=== PATIENT | male | born 1970 | race Caucasian/White ===

== ENCOUNTER → 2017-04-02 | Outpatient (CLI) | payer OTHER ==
--- NOTE | 2017-04-03 00:03 | MR ---
EXAMINATION TYPE: MR brain wo/w con DATE OF EXAM: 04/02/2017 COMPARISON: NONE HISTORY: Seizures TECHNIQUE: Multiplanar, multisequence images of the brain and brainstem is performed without and with IV contras t, utilizing 7.5 mL intravenous Gadavist . FINDINGS: There are scattered foci of abnormal increased signal in the white matter in both cerebral hemisphere s that measure up to 7 mm. Total number is less than 10. These measure mostly less than 5 mm. Ventric les of normal size. There is no midline shift. There is no sign of intracranial hemorrhage. Sella tur cica is normal. The brainstem appears normal. Corpus callosum appears normal. The contrast images dorota w no pathologic enhancement. IMPRESSION: There are relatively small scattered white matter lesions in both cerebral hemispheres th at are nonspecific. I would consider both chronic small vessel ischemia and demyelinating disease. Mi nimal maxillary sinusitis is noted.
== END | disposition home or self-care (01) ==
LOC: RADMRIMAIN 20:06
PROVIDERS: ATTEND Family Medicine
DX: R56.9 Unspecified convulsions (principal); Z88.5 Allergy status to narcotic agent; Z88.8 Allergy status to other drugs, medicaments and biological substances
CPT/HCPCS: 70553; A9581